=== PATIENT | male | born 1970 | race Caucasian/White ===

== ENCOUNTER 2021-03-11 15:10 | Emergency (ER) | payer OTHER ==
[2021-03-11 16:13] LABS: RED BLOOD COUNT 4.46 M/UL (4.20-5.50); WHITE BLOOD COUNT 10.6 K/UL (4.5-11.0)
[2021-03-11 16:46] LABS: BUN/CREATININE RATIO 12 (0-10)
== END 2021-03-11 18:30 | disposition home or self-care (01) ==
LOC: ER1 15:10
PROVIDERS: Physician Assistant
DX: R42 Dizziness and giddiness (principal); J32.9 Chronic sinusitis, unspecified; E11.9 Type 2 diabetes mellitus without complications; I10 Essential (primary) hypertension; F17.200 Nicotine dependence, unspecified, uncomplicated; Z79.899 Other long term (current) drug therapy
CPT/HCPCS: 70450; 80053; 81001; 82550; 82553; 83874; 84484; 85025; 93005; 99284